=== PATIENT | male | born 1995 | race Hispanic/Latino ===

== ENCOUNTER 2019-09-09 14:06 | Emergency (ER) | payer SELFPAY ==
[2019-09-09] MEDS ORDERED: Lidocaine 1% w/Epinephrine 1:100K 20 ML VIAL ONE (15:48)
[2019-09-09] MEDS ORDERED: Iopamidol-370 76% 500 ML 1 ML ONE (16:02)
[2019-09-09 17:38] LABS: #Basophils 0.1 thou/uL (0.0-0.2); #Eosinphils 0.1 thou/uL (0.0-0.7); #Lymphocytes 2.5 thou/uL (1.20-3.40); #Monocytes 0.7 thou/uL (0.11-0.59); %Basophils 0.7 % (0.0-1.0); %Eosinophils 1.3 % (0.0-10.0); %Monocytes 6.9 % (0.0-10.0); %Neutrophils 67.1 % (42.0-75.0); Mean Corpuscular HGB CONC 33.5 g/dL (32.0-36.0); Mean Corpuscular Hemoglobin 32.6 pg (27.0-31.0); Mean Corpuscular Volume 97.2 fL (78.0-98.0); Mean Platelet Volume 8.2 fL (7.4-10.4); Platelet Count 273 thou/uL (130-400); RBC Distribution Width 10.9 % (11.5-14.5); Red Blood Cell (RBC) Count 4.61 mill/uL (4.70-6.10); White Blood Cell (WBC) Count 10.4 thou/uL (4.8-10.8)
--- NOTE | 2019-09-09 17:40 | CT ---
EXAM: CT pelvis with contrast HISTORY: Abscess to the back of left thigh without improvement on antibiotics COMPARISON: None TECHNIQUE: Multiple contiguous axial images were obtained and a CT of the pelvis with contrast. Sagit chuy and coronal reformats were performed. FINDINGS: The visualized intrapelvic structures are unremarkable. Soft tissue stranding is seen in the left glu teal region without focal fluid collection. No pelvic fractures are seen. No fracture of either proximal femur is seen. No significant degenerat gold changes are seen. IMPRESSION: Stranding change/cellulitis in the left gluteal region without focal abscess formation.
[2019-09-09 18:03] LABS: ALT (SGPT) 34 U/L (8-55); AST (SGOT) 28 U/L (5-34); Albumin 4.2 g/dL (3.5-5.0); Alkaline Phosphatase 113 U/L (40-110); Anion Gap 14 mmol/L (10-20); BUN (Urea Nitrogen) 9 mg/dL (8.9-20.6); Bilirubin, Total 0.2 mg/dL (0.2-1.2); Calc. Creatinine Clearance 0 mL/min (70-130); Calcium 8.8 mg/dL (7.8-10.44); Carbon Dioxide 24 mmol/L (22-29); Chloride 101 mmol/L (98-107); Estimated GFR-MDRD Greater than 90; Globulin 3.2 g/dL (2.4-3.5); Glucose 105 mg/dL (70-105); Potassium 3.7 mmol/L (3.5-5.1); Protein, Total 7.4 g/dL (6.0-8.3); Sodium 135 mmol/L (136-145)
== END 2019-09-09 19:07 | disposition home or self-care (01) ==
LOC: ERS 14:06
DX: L02.31 Cutaneous abscess of buttock (principal)
CPT/HCPCS: 10061; 36415; 72193; 80053; 85025; Q9967

== ENCOUNTER 2020-01-19 10:53 | Day surgery (SDC) | payer OTHER ==
--- NOTE | 2020-01-18 11:07 | HP ---
HISTORY OF PRESENT ILLNESS: Deon Cordova is a 24-year-old male, who speaks some Nigerien, mostly Danish speaking, seen in the emergency room, drainage of right perirectal and buttock abscesses, was seen by [facility], complained of intermittent drainage, referred by Dr. Qing Palm for suspected [id number]. The patient is self-pay. ALLERGIES: NONE. TOBACCO: None. ALCOHOL: Rarely. PAST SURGICAL AND MEDICAL HISTORY: Noncontributory. MEDICATIONS: None. REVIEW OF SYSTEMS: Noncontributory. PHYSICAL EXAMINATION: VITAL SIGNS: 137 pounds, 61 inches, 25 BMI, 128/72, 72, 98.4 degrees. HEAD, EARS, EYES, NOSE, AND THROAT: Unremarkable. LUNGS: Clear to auscultation. CARDIAC: Regular rhythm. No murmur or gallop. ABDOMEN: Soft and nontender. No mass. EXTREMITIES: Unremarkable. Right perianal area 1 to 2 cm from the anus on the right is a small scar without opening, but skin is very thin. He also has another opening about 4.5 to 5 cm out on the right buttock of the same character. ASSESSMENT AND PLAN: The patient gives a history consistent with [id number] with chronic drainage intermittently. We would recommend exam under anesthesia and indicated procedures, most likely fistulotomy or seton. Risks and benefits explained. He consents. [employer] Operator service was used. He was given a financial quote for such services and we will wait for him to call to schedule. Job ID: [id number]
[2020-01-18 11:27] VITALS: BMI 25.9
[~2020-01-19 10:53] MED LIST: Dexamethasone 20 MG/5 ML VIAL ONE; Glycopyrrolate 0.2 MG/ML 5 ML SYRINGE ONE; Lidocaine 1% PF 5 ML VIAL ONE; Ondansetron PF 4 MG/2 ML Vial ONE; PROPOFOL 200 MG/20 ML VIAL ONE; Rocuronium Bromide 10 MG/ML (10ML VIAL) ONE; Succinylcholine Chloride 20 MG/ML 10 ml SYRINGE FS ONE
[2020-01-19] MEDS ORDERED: Bupivacaine PF 0.5% 30 ML VIAL ONE (11:17)
[2020-01-19] MEDS ORDERED: Lidocaine 1% w/Epinephrine 1:100K 20 ML VIAL ONE (11:17)
[2020-01-19] MEDS ORDERED: Lidocaine 2% Jelly 5 ML TUBE ONE (11:17)
[2020-01-19] MEDS ORDERED: Ketorolac Tromethamine 30 MG/ML VIAL ONE (11:20)
[2020-01-19] MEDS ORDERED: Acetaminophen 500 MG TAB ONE (11:20)
[2020-01-19 11:59] LABS: Hemoglobin 15.4 g/dL (14.0-18.0); Mean Corpuscular HGB CONC 33.6 g/dL (32.0-36.0); Mean Corpuscular Hemoglobin 32.3 pg (27.0-31.0); Mean Corpuscular Volume 96.1 fL (78.0-98.0); Platelet Count 193 thou/uL (130-400); RBC Distribution Width 11.2 % (11.5-14.5); Red Blood Cell (RBC) Count 4.76 mill/uL (4.70-6.10); White Blood Cell (WBC) Count 7.8 thou/uL (4.8-10.8)
[2020-01-19 12:23] LABS: Anion Gap 13 mmol/L (10-20); BUN (Urea Nitrogen) 9 mg/dL (8.9-20.6); Calc. Creatinine Clearance 121 mL/min (70-130); Calcium 9.5 mg/dL (7.8-10.44); Carbon Dioxide 26 mmol/L (22-29); Chloride 105 mmol/L (98-107); Estimated GFR-MDRD Greater than 90; Glucose 85 mg/dL (70-105); Potassium 3.7 mmol/L (3.5-5.1); Sodium 140 mmol/L (136-145)
[2020-01-19] MEDS ORDERED: Fentanyl 100 MCG/2 ML VIAL ONE (12:37)
--- NOTE | 2020-01-19 15:29 | OP ---
DATE OF PROCEDURE: 01/19/2020 PREOPERATIVE DIAGNOSIS: [id number]. POSTOPERATIVE DIAGNOSIS: [id number] x2, left anterolateral and left posterolateral. PROCEDURES PERFORMED: Exam under anesthesia and partial fistulotomy with placement of 2 setons. 2-0 silk placed in each one left tight. 0 silk placed loose in each one taped to the left buttocks. ANESTHESIA: General, local 0.5% Marcaine 30 mL mixed with 1% Xylocaine with epinephrine 20 mL. DESCRIPTION OF PROCEDURE: The patient was taken to the operating room, where under general anesthesia in the dorsal lithotomy position, buttocks, scrotum, penis, and perianal area were prepared with Betadine and draped in routine fashion. The patient had 2 openings, one left anterolateral and other left posterolateral. These were both probed with a left probe and communicated these 2 separate openings. A partial fistulotomy was performed, but as both these involved internal sphincter at least partially, a complete fistulotomy was not complete. Thus, in each of the 2 wounds, 2-0 silk seton placed and tightened. The other, 0 silk placed and left loose for tightening later. The patient tolerated the procedure well without complications. Job ID: [id number]
[2020-01-19] MEDS ORDERED: HYDROcodone/Acetaminophen 5/325 mg Tablet ONE (15:37)
== END 2020-01-19 15:49 | disposition home or self-care (01) ==
LOC: SDC 10:53
PROVIDERS: ATTEND Specialist
PROC: 0DBQ4ZZ Excision of Anus, Percutaneous Endoscopic Approach (ICD-10-PCS; principal; 2020-01-19)
DX: K60.3 Anal fistula (principal)
CPT/HCPCS: 80048; 85027; J0694; J1100; J1885; J2001; J2405; J2704; J3010; S0020